=== PATIENT | female | born 1960 | race African-American/Black ===

== ENCOUNTER → 2016-07-22 | Outpatient (CLI) | payer OTHER ==
[2014-02-17 01:29] VITALS: BP 137/91
--- NOTE | 2016-07-22 08:51 | US ---
HISTORY: Right upper quadrant pain, nausea Study: Right upper quadrant abdominal ultrasound Comparison: None Technique: Multiple images of the right upper quadrant were obtained. Findings: The liver measures 14.5 cm. No sonographic evidence of focal discrete hepatic mass is appreciated. T he right kidney measures 8.6 x 5.6 x 4.5 cm. No sonographic evidence of hydronephrosis is identified . No shadowing echogenic stones are noted within the gallbladder. The gallbladder wall is thickened measuring 3.6 mm. The common bile duct is within normal limits in caliber measuring 4.0 mm. The panc reas was incompletely visualized. IMPRESSION: 1. Gallbladder wall thickening as noted above, otherwise unremarkable right upper quadrant ultrasou nd as noted above. Reported By:
== END ==
LOC: RAD 07:56
PROVIDERS: ATTEND Internal Medicine
DX: R10.11 Right upper quadrant pain (principal); R11.0 Nausea
CPT/HCPCS: 76705